=== PATIENT | female | born 1965 | race Asian ===

== ENCOUNTER 2022-07-02 20:31 | Emergency (ER) | payer OTHER ==
[~2022-07-02] VITALS: Ht 157.5 cm; Wt 113.4 kg
[2022-07-02 20:50] VITALS: BP_SYST 133
--- NOTE | 2022-07-02 20:56 | NUR ---
Patient triaged and placed in waiting room. VSS and patient appears in no acute distress at this time. Accompanied by FAMILY, awaiting available bed, and MD notified of need for MSE.
--- NOTE | 2022-07-02 22:26 | NUR ---
DR. OATES WITH PATIENT IN TRIAGE FOR MSE.
[2022-07-02 22:45] VITALS: BP_SYST 133
[2022-07-02] MEDS ORDERED: ACETAMINOPHEN 500 MG TABLET PO ONE (23:00)
[2022-07-02] MEDS ORDERED: NAPROXEN 250 MG TABLET PO ONE (23:00)
[2022-07-02] MEDS ORDERED: BACI15OI13 TP (23:01)
[2022-07-02] MEDS ORDERED: NAPR-1172 PO (23:01)
--- NOTE | 2022-07-02 23:24 | NUR ---
went over d/c paperwork with patient. placed gloria wrap on bilat knees. answered patient questions
== END 2022-07-02 23:26 | disposition home or self-care (01) ==
LOC: SED 20:31
DX: S50.02XA Contusion of left elbow, initial encounter (principal); S80.02XA Contusion of left knee, initial encounter; S80.01XA Contusion of right knee, initial encounter; I10 Essential (primary) hypertension; Z79.899 Other long term (current) drug therapy; W10.9XXA Fall (on) (from) unspecified stairs and steps, initial encounter; Y93.89 Activity, other specified; Y92.89 Other specified places as the place of occurrence of the external cause; Y99.8 Other external cause status
CPT/HCPCS: 71045; 99284